=== PATIENT | male | born 1955 | race African-American/Black ===

== ENCOUNTER → 2018-07-03 | Emergency (ER) | payer OTHER ==
[~2018-07-03] VITALS: Ht 165.1 cm; Wt 70.8 kg
== END | disposition home or self-care (01) ==
LOC: ER 10:57
DX: L02.31 Cutaneous abscess of buttock (principal)

== ENCOUNTER 2020-11-14 11:10 | Emergency (ER) | payer OTHER ==
[~2020-11-14] VITALS: Ht 162.6 cm; Wt 71.7 kg
[2020-11-14] MEDS ORDERED: LOSARTAN POTASS50 MG PO (11:34)
== END 2020-11-14 14:29 | disposition home or self-care (01) ==
LOC: ER 11:10
DX: L02.31 Cutaneous abscess of buttock (principal); K61.1 Rectal abscess; B37.89 Other sites of candidiasis; B96.89 Other specified bacterial agents as the cause of diseases classified elsewhere